=== PATIENT | male | born 1945 | race Caucasian/White ===

== ENCOUNTER 2020-02-19 21:46 | Emergency (ER) | payer MEDICARE, OTHER ==
[2020-02-19] MEDS ORDERED: Diphtheria,Pertussis(Acell),Tetanus Vaccine 0.5 ML Syringe IM ONE (21:53)
[2020-02-19] MEDS ORDERED: Lidocaine 1% with EPINEPHrine 1:100,000 50 ML MDV SUBCUT STA (22:02)
[2020-02-19] MEDS ORDERED: Bacitracin Oint 1 GM U/D Packet TOP ONE (22:02)
--- NOTE | 2020-02-19 22:04 | EDM.PDOC ---
ED HPI GENERAL MEDICAL PROBLEM - General Chief Complaint: Laceration Stated Complaint: MEDICAL [facility]IA [facility] Time Seen by Provider: 02/19/20 21:55 Source of Information: Reports: Patient, EMS, Old Records, RN History Limitations: Reports: No Limitations - History of Present Illness INITIAL COMMENTS - FREE TEXT/NARRATIVE: 74 yo male who drink heavily of beer most days is brought by EMS after he fell outside hitting his head and incurring a large laceration to the scalp. He lives alone so it is not known if he lost consciousness or for how long. Obviously intoxicated during transport. No other apparent injuries. Does report a RIZO. Onset: Today Onset Date: 02/19/20 Duration: Hour(s):, Constant Location: Reports: Head Quality: Reports: Ache Severity: Moderate Improves with: Reports: None Worsens with: Reports: None Context: Reports: Trauma Associated Symptoms: Reports: Headaches, Other (scalp laceration) head Pain Score (Numeric/FACES): 1 - Related Data Allergies Allergy/AdvReac Type Severity Reaction Status Date / Time codeine Allergy Hives Verified 02/19/20 22:19 Home Meds: Home Meds Doxazosin [Doxazosin Mesylate] 4 mg PO BEDTIME 08/31/15 [History] Fenofibrate Nanocrystallized [Tricor] 1 tab PO DAILY 08/31/15 [History] Hydrochlorothiazide 25 mg PO DAILY 08/31/15 [History] Lisinopril 1 tab PO BEDTIME 08/31/15 [History] Pravastatin [Pravachol] 1 tab PO BEDTIME 08/31/15 [History] allopurinoL [Allopurinol] 1 tab PO DAILY 08/31/15 [History] dilTIAZem HCL [Cartia Xt] 1 tab PO DAILY 08/31/15 [History] Past Medical History HEENT History: Reports: Impaired Vision Cardiovascular History: Reports: Heart Murmur, High Cholesterol, Hypertension Gastrointestinal History: Reports: Chronic Constipation, Gastritis Genitourinary History: Reports: Other (See Below) Other Genitourinary History: Night voiding Musculoskeletal History: Reports: Fracture, Osteoarthritis Other Musculoskeletal History: arm ribs r tibia Hematologic History: Reports: Iron Deficiency Dermatologic History: Reports: Psoriasis, Other (See Below) Other Dermatologic History: dermatitis - Infectious Disease History Infectious Disease History: Reports: Chicken Pox, Measles, Shingles - Past Surgical History GI Surgical History: Reports: Other (See Below) ED ROS GENERAL - Review of Systems Review Of Systems: See Below Constitutional: Reports: No Symptoms HEENT: Reports: No Symptoms Respiratory: Reports: No Symptoms Cardiovascular: Reports: No Symptoms GI/Abdominal: Reports: No Symptoms Musculoskeletal: Reports: No Symptoms. Denies: Neck Pain Skin: Reports: Wound Neurological: Reports: Headache ED EXAM, SKIN/RASH Exam: See Below Exam Limited By: No Limitations General Appearance: Alert, WD/WN, No Apparent Distress Eye Exam: Bilateral Eye: Normal Inspection, PERRL Ears: Normal External Exam, Normal Canal, Hearing Grossly Normal, Normal TMs Nose: Normal Inspection, No Blood Throat/Mouth: Normal Inspection, Normal Lips, Normal Oropharynx, Normal Voice, No Airway Compromise Head: Atraumatic, Normocephalic Neck: Normal Inspection Respiratory/Chest: No Respiratory Distress, Lungs Clear, Normal Breath Sounds, No Accessory Muscle Use Cardiovascular: No Edema, Irregularly Irregular GI/Abdominal: Normal Bowel Sounds, Soft, Non-Tender, No Distention Back Exam: Normal Inspection. No: CVA Tenderness (R), CVA Tenderness (L) Extremities: Normal Inspection, Normal Range of Motion, Non-Tender, No Pedal Edema Neurological: Alert, Oriented, CN II-XII Intact, Normal Cognition, No Motor/Sensory Deficits Psychiatric: Normal Affect, Normal Mood Skin: Warm, Dry, Intact, Normal Color, No Rash Location, Skin: Head Characteristics: Linear Associated features: Tenderness. No: Warmth, Swelling, Induration, Lymphangitis ED SKIN PROCEDURES - Laceration/Wound Repair Right Posterior Head Appearance: Subcutaneous, Linear, Mildly Contaminated Anesthetic Type: Local Local Anesthesia - Lidocaine (Xylocaine): 1% with EPI Local Anesthetic Volume: Other (8 ml) Skin Prep: Saline Saline Irrigation (cc's): 150 Exploration/Debridement/Repair: Wound Explored, Minimal Debridement Closed with: [place] Lac/Wound length In cm: 7.5 # of Sutures: 5 (cipriano) Drain Placement: No Sterile Dressing Applied: Nurse Tetanus Status Addressed: Yes Complications: No Course - Vital Signs Last Recorded V/S: Last Vital Signs Temp 36.4 C 02/19/20 23:32 Pulse 99 02/20/20 04:02 Resp 14 02/20/20 04:02 BP 133/76 02/20/20 04:02 Pulse Ox 98 02/20/20 04:02 - Orders/Labs/Meds Orders: Active Orders 24 hr Category Date Time Status Cardiac Monitoring [RC] .As Directed Care 02/19/20 21:54 Active Vaccines to be Administered [RC] PER UNIT ROUTINE Care 02/19/20 21:53 Active Labs: Laboratory Tests 02/19/20 02/19/20 02/19/20 Range/Units 22:06 22:06 22:06 WBC 4.2 L (4.5-11.0) K/uL RBC 3.67 L (4.30-5.90) M/uL Hgb 12.5 (12.0-15.0) g/dL Hct 34.2 L (40.0-54.0) % MCV 93 (80-98) fL MCH 34 H (27-31) pg MCHC 37 H (32-36) % Plt Count 228 (150-400) K/uL Sodium 122 L (140-148) mmol/L Potassium 3.2 L (3.6-5.2) mmol/L Chloride 89 L (100-108) mmol/L Carbon Dioxide 25 (21-32) mmol/L Anion Gap 11.2 (5.0-14.0) mmol/L BUN 7 (7-18) mg/dL Creatinine 0.8 (0.8-1.3) mg/dL Est Cr Clr Drug Dosing 91.61 mL/min Estimated GFR (MDRD) > 60 (>60) Glucose 102 (74-106) mg/dL Calcium 8.5 (8.5-10.1) mg/dL Magnesium (1.8-2.4) mg/dL Ethyl Alcohol 192 mg/dL 02/19/20 Range/Units 22:37 WBC (4.5-11.0) K/uL RBC (4.30-5.90) M/uL Hgb (12.0-15.0) g/dL Hct (40.0-54.0) % MCV (80-98) fL MCH (27-31) pg MCHC (32-36) % Plt Count (150-400) K/uL Sodium (140-148) mmol/L Potassium (3.6-5.2) mmol/L Chloride (100-108) mmol/L Carbon Dioxide (21-32) mmol/L Anion Gap (5.0-14.0) mmol/L BUN (7-18) mg/dL Creatinine (0.8-1.3) mg/dL Est Cr Clr Drug Dosing mL/min Estimated GFR (MDRD) (>60) Glucose (74-106) mg/dL Calcium (8.5-10.1) mg/dL Magnesium 1.5 L (1.8-2.4) mg/dL Ethyl Alcohol mg/dL Meds: Medications Discontinued Medications Generic Name Dose Route Start Last Admin Trade Name Sharona PRN Reason Stop Dose Admin Bacitracin 2 dose 02/19/20 22:02 02/19/20 22:30 Bacitracin Oint 1 Gm TOP 02/19/20 22:03 2 dose ONETIME ONE Administration Diphtheria/Tetanus/Acell Pertussis 0.5 ml 02/19/20 21:53 02/19/20 22:29 Boostrix IM 02/19/20 21:54 0.5 ml .ONCE ONE Administration Lidocaine/Epinephrine 10 ml 02/19/20 22:02 02/19/20 22:29 Xylocaine 1% With Epinephrine 1:100,000 SUBCUT 02/19/20 22:03 10 ml NOW STA Administration Magnesium Oxide 800 mg 02/19/20 23:08 02/19/20 23:16 Magnesium Oxide PO 02/19/20 23:09 800 mg ONETIME ONE Administration Potassium Chloride 40 meq 02/19/20 22:37 02/19/20 23:16 Potassium Chloride PO 02/19/20 22:38 40 meq ONETIME ONE Administration Thiamine HCl 100 mg 02/19/20 22:38 02/19/20 23:16 Vitamin B-1 PO 02/19/20 22:39 100 mg ONETIME ONE Administration - Radiology Interpretation Free Text/Narrative:: Head CT scan-neg CT Results Date: 02/19/20 CT Results Time: 22:37 Departure - Departure Time of Disposition: 07:00 Disposition: Home, Self-Care 01 Condition: Fair Clinical Impression: Hypokalemia, Fall in elderly patient, Hypomagnesemia, Hyponatremia Alcohol intoxication Qualifiers: Complication of substance-induced condition: with unspecified complication Qualified Code(s): F10.929 - Alcohol use, unspecified with intoxication, unspecified - Discharge Information *PRESCRIPTION DRUG MONITORING PROGRAM REVIEWED*: Not Applicable *COPY OF PRESCRIPTION DRUG MONITORING REPORT IN PATIENT JASKARAN: Not Applicable Instructions: Hypokalemia, Binge-Drinking Information, Adult, Fall Prevention in Hospitals, Adult Referrals: PCP,None [Primary Care Provider] - Forms: ED Department Discharge Additional Instructions: You need to markedly reduced your alcohol consumption for your overall health and to prevent falls. Clean your wound twice a day with either soap and water or 1/2 water and 1/2 peroxide. Dry. Apply antibiotic ointment. Recheck for signs of infection. [place] out in about 9 days. You need to eat a diet with more potassium OR talk to your provider about potassium supplementation OR talk to your doctor about replacing your hydrochlorothiazide. Sepsis Event Note (ED) - Focused Exam Vital Signs: Vital Signs Temp Pulse Resp BP Pulse Ox 02/20/20 04:02 99 14 133/76 98 02/19/20 23:32 36.4 C 90 13 144/68 H 98 02/19/20 22:00 36.0 C L 96 16 142/76 H 98 02/19/20 21:50 36.0 C L 96 16 142/76 H 98 - My Orders Last 24 Hours: My Active Orders 02/19/20 21:53 Vaccines to be Administered [RC] PER UNIT ROUTINE 02/19/20 21:54 Cardiac Monitoring [RC] .As Directed - Assessment/Plan Last 24 Hours: My Active Orders 02/19/20 21:53 Vaccines to be Administered [RC] PER UNIT ROUTINE 02/19/20 21:54 Cardiac Monitoring [RC] .As Directed
--- NOTE | 2020-02-19 22:33 | CRLCT ---
INDICATION: Fall TECHNIQUE: CT head without contrast. COMPARISON: None FINDINGS: CSF spaces: Within normal limits for age. Brain parenchyma: The stoner-white differentiation is normal. No sign of mass, hemorrhage, or midline shift. Periventricular white matter changes consistent chronic microvascular disease. Diffuse volume loss. Skull base and calvarium: The visualized paranasal sinuses and mastoid air cells demonstrate no acute or significant findings. The visualized orbits are grossly unremarkable. No skull fractures. IMPRESSION: Unremarkable noncontrast head CT. Dictated by Richard Gaviria MD @ 02/19/2020 10:32:31 PM Please note that all CT scans at this facility use dose modulation, iterative reconstruction, and/or weight-based dosing when appropriate to reduce radiation dose to as low as reasonably achievable. Dictated by: Richard Gaviria MD @ 02/19/2020 22:32:36 (Electronically Signed)
[2020-02-19] MEDS ORDERED: Potassium Chloride 10 MEQ Cap.ER PO ONE (22:37)
[2020-02-19] MEDS ORDERED: Thiamine 100 MG Tab PO ONE (22:38)
[2020-02-19] MEDS ORDERED: Magnesium Oxide 400 MG Tab PO ONE (23:08)
[2020-02-20 04:03] VITALS: BP 133/76; PULSE 99
== END 2020-02-20 07:03 | disposition home or self-care (01) ==
LOC: JP.ED 21:46
DX: S01.01XA Laceration without foreign body of scalp, initial encounter (principal); F10.129 Alcohol abuse with intoxication, unspecified; E87.6 Hypokalemia; E83.42 Hypomagnesemia; E87.1 Hypo-osmolality and hyponatremia; M19.90 Unspecified osteoarthritis, unspecified site; E78.00 Pure hypercholesterolemia, unspecified; I10 Essential (primary) hypertension; Z23 Encounter for immunization; Z79.899 Other long term (current) drug therapy; Y90.6 Blood alcohol level of 120-199 mg/100 ml
CPT/HCPCS: 12002; 36415; 70450; 80048; 80307; 83735; 85027; 90471; 90715; 99284; A9270; 99283